=== PATIENT | male | born 1935 | race Caucasian/White ===

== ENCOUNTER 2016-09-02 10:58 | Inpatient (IN) | payer MEDICARE ==
[~2016-09-02] VITALS: Ht 167.6 cm; Wt 59.2 kg
--- NOTE | 2016-09-03 13:32 | HP ---
ADMIT: 09/02/2016 RM/LOC: 512 [facility] MR#: [id number] [address] [address] [place] [address] History and Physical SEX: M AGE: 81 : 1935 DATE OF SERVICE: CHIEF COMPLAINT: Hip pain. HISTORY OF PRESENT ILLNESS: Leyla Milner an 81-year-old male residing at [facility]. He is accompanied by his daughter. Unknown, how he had a fall; however, it is unknown that he did have a mechanical fall. No chest pain or shortness of breath. No nausea or vomiting. He has pain in his right hip and that is it. He has been treated with Bactrim previously for UTI. He is evaluated by Dr. Cain in the ER as well as Orthopedics is contacted and was noted to have a hip fracture. Head CT is completed and no acute findings. Chemistries are stable. His creatinine is 1.7, unknown what his baseline is. Left to look back at that. No white count, hemoglobin is 13.2, INR is not prolonged. X-ray of his hip shows right hip fracture, and no acute changes. He does have some hyperinflation. The patient is a very poor historian, just states he does have right hip pain. He would like to leave. He does not like to stay in the hospital but his daughter does talk to him and he is now ultimately agrees. On this stay, he does have a broken hip. PAST MEDICAL HISTORY: Includes: 1. Macular edema. 2. Hearing loss. 3. Vascular dementia. 4. Hypertension. 5. Chronic atrial fibrillation. 6. Coronary artery disease. 7. Hyperlipidemia. 8. Urge incontinence. MEDICATIONS: Include: 1. Fosamax. 2. Norvasc. 3. Eliquis. 4. Tenormin. 5. Lipitor. 6. Voltaren gel. 7. Aricept. 8. Iron. 9. Antivert. 10.Namenda. 11.Ditropan. 12.Tramadol. 13.Vitamin E. SOCIAL HISTORY: He previously had a UTI and the date onto the Bactrim is the . ADMIT: 09/02/2016 RM/LOC: 512 [facility] MR#: [id number] [address] [address] [place] [address] History and Physical SEX: M AGE: 81 : 1935 ALLERGIES: NO KNOWN MEDICAL ALLERGIES. FAMILY HISTORY: Mother with ovarian cancer. Father with heart disease. Sister with hyperlipidemia, brother with bone cancer, sister with arthritis. He does not drink, smoke, or do drugs. He did smoke in the past. REVIEW OF SYSTEMS: Attempted to be obtained; however, he is a very poor historian. He only complains of right hip pain. PHYSICAL EXAMINATION: VITAL SIGNS: 170/76, pulse 71, respiratory rate is 18, temperature is 96.5, he is 98% on room air. GENERAL: He is alert. He is orientated to person. He is agitated by blood pressure cuff which resolves when we taken off. He is very fidgety, want to leave. NECK: Supple. HEENT: Extraocular muscles intact. Pupils equally round and responsive to light. HEART: Actually sounds regular. LUNGS: Distant. ABDOMEN: Soft, nontender. EXTREMITIES: No clubbing or cyanosis. He actually moves his right hip. It does cause him some pain. Reminded that he broke his hip and he does stop moving his leg. Frequent redirecting is required. LABORATORY DATA: EKG with no acute ST segments. CT head no acute findings. Sodium is 140, potassium 4.1, chloride is 105, bicarb is 28, BUN is 27, creatinine is 1.7. Recent creatinine in clinic 3 days ago was 1.28. White blood cells are 9.4, hemoglobin is 13.2, platelets a 192. INR is 1.12. X-ray right hip fracture, chest x-ray; hyperinflation no pneumonia. ASSESSMENT AND PLAN: 1. Right hip fracture. 2. Acute renal failure. 3. Previous urinary tract infection. 4. Atrial fibrillation. 5. Hypertension. 6. Hyperlipidemia. 7. Dementia. The patient is in acute renal failure. I put him on some normal saline. We will follow up some laboratories in the morning. We will hold his ADMIT: 09/02/2016 RM/LOC: 512 [facility] MR#: [id number] [address] [address] [place] [address] History and Physical SEX: M AGE: 81 : 1935 nephrotoxins at this time. We will go ahead and hold his anticoagulation to ready him for the OR. We will also maintain him on some antibiotics for his previously known UTI. This is by nature of a nonelective surgical intervention and therefore, buying a nature high risk. He is a high risk for postsurgical complications. He is a high surgical risk for an intermediate risk procedure; however, he does have a very high mortality rate if no intervention is taken. We will go ahead and add this to Dr. Thompson's list and he will assume his care in the morning. Plan is to proceed to the OR with Dr. Charles in the morning for ORIF of his right hip fracture. I discussed this plan with the patient, expressed understanding, was in agreement, had no further questions. Kevin Fletcher MD/ tanmay JOB #: [id number] CC: Maldonado Thompson, Attending Physician [facility] Physician, Family Physician
--- NOTE | 2016-09-04 08:12 | OR ---
ADMIT: 09/02/2016 RM/LOC: 512 [facility] MR#: [id number] [address] [address] [place] [address] Operative/Delivery Room Report SEX: M AGE: 81 : 1935 SURGERY DATE: 09/03/2016 SURGEON: Alfreda Charles MD PREOPERATIVE DIAGNOSIS: Right intertrochanteric hip fracture. POSTOPERATIVE DIAGNOSIS: Right intertrochanteric hip fracture. PROCEDURE: Trochanteric femoral nailing, right hip. ANESTHESIA: General. ESTIMATED BLOOD LOSS: 25 mL. COMPLICATIONS: None. SPECIMEN: None. FREELANCE ART DIRECTOR: HORACIO Diallo. IMPLANT: Synthes trochanteric femoral nail 12 mm x 130 degrees x 170 mm with a 105 mm spiral blade and a 38 mm distal locking screw. DESCRIPTION OF PROCEDURE: This patient was brought to the operating room. After a satisfactory level of anesthesia was achieved, the patient was placed on the fracture table in the supine position. All bony prominences were well padded. His right lower extremity was placed in traction, and a close reduction performed using C-arm image intensifier to guide our reduction. The hip was then prepped and draped in the usual sterile fashion through an incision just above the right greater trochanter. Dissection was carried through the subcutaneous tissue using electrocautery. The tensor fascia was split and a guide pin was placed in the tip of the trochanter and placed down into the femur across the fracture site. The trochanteric reamer was then ADMIT: 09/02/2016 RM/LOC: 512 [facility] MR#: [id number] [address] [address] [place] [address] Operative/Delivery Room Report SEX: M AGE: 81 : 1935 used and a 12 mm x 130 degrees x 170 mm trochanteric femoral nail was then seated. The alignment guide was then used for the spiral blade through a 2 cm incision laterally and more distally. A guidewire was placed up to the femoral head and neck. This was measured, the cortex then reamed, and then a step drill used to thin the femoral head and neck. A 105 mm spiral blade was seated, locked proximally, then distally through the same incision. I placed an alignment guide. I then placed a single 38 mm locking screw to complete the fixation of the fracture. AP and lateral C-arm images were obtained for permanent films. Both wounds were irrigated. The deep fascia with closed with #1 Vicryl, the subcutaneous tissue with 2-0 Vicryl, and the skin with jaquelin. Sterile dressings were applied to both wounds and the patient was then transferred from the operative suite in stable condition. Alfreda Charles MD/ tanmay JOB #: [id number] CC: Maldonado Thompson, Attending Physician [facility] Physician, Family Physician
--- NOTE | 2016-09-06 07:13 | DS ---
ADMIT: 09/02/2016 RM/LOC: 512 [facility] MR#: [id number] [address] [address] [place] [address] Discharge Summary SEX: M AGE: 81 : 1935 ADMISSION DATE: 09/02/2016 DISCHARGE DATE: 09/05/2016 CONSULTATIONS: Orthopedic Surgery. FINAL DIAGNOSES: 1. Acute hip fracture. 2. Severe advanced dementia. 3. Atrial fibrillation. 4. Hypertension. 5. Acute blood loss anemia. REASON FOR ADMISSION: The patient is an 81-year-old gentleman, who [facility]. Became unsteady, fell, had a hip fracture. Admitted for further definitive care. HOSPITAL COURSE: The patient was admitted. Orthopedic Surgery had discussion with his family regarding overall goals of care and surgery. Elected for surgery. He proceeded for surgery and overall did quite well. Pain was well controlled postoperatively. No major issues other than some acute blood loss anemia. He was restarted on his anticoagulation regarding his atrial fibrillation. Eating a general diet reasonably well. At time of discharge, arrangements were made for a snf facility. DISCHARGE INSTRUCTIONS: He will go to a snf facility. DISCHARGE MEDICATIONS: Please see discharge MAR. He will see me back to clinic in 10-14 days. We will hold his Eliquis for a couple of days at discharge and get a repeat H and H on Saturday. Maldonado Thompson MD/ abhishek JOB #: [id number] CC: Maldonado Thompson MD, Attending Physician [facility] Physician, Family Physician
[2016-09-06] MEDS ORDERED: ARICEPT DPS5 MG PO (13:42)
[2016-09-06] MEDS ORDERED: DITROPAN-DPS5 MG PO (13:42)
[2016-09-06] MEDS ORDERED: ELIQUIS2.5 MG PO (13:42)
[2016-09-06] MEDS ORDERED: NORVASC2.5 MG PO (13:43)
[2016-09-06] MEDS ORDERED: TENORMIN-DPS25 MG PO (13:43)
[2016-09-06] MEDS ORDERED: SENOKOT S1 TAB PO (13:43)
[2016-09-06] MEDS ORDERED: FEOSOL-DPS325 MG PO (13:43)
[2016-09-06] MEDS ORDERED: LIPITOR DPS10 MG PO (13:43)
[2016-09-06] MEDS ORDERED: NAMENDA5 MG PO (13:43)
[2016-09-06] MEDS ORDERED: TYLENOL EXTRA500 M1 PO (13:44)
[2016-09-06] MEDS ORDERED: VITAMIN E400 UNIT PO (13:45)
[2016-09-06] MEDS ORDERED: ULTRAM DPS50 MG PO (13:46)
[2016-09-06] MEDS ORDERED: ATIVAN-DPS0.5 MG PO (13:46)
[2016-09-06] MEDS ORDERED: MIRALAX PACKET17 GM PO (13:47)
--- NOTE | 2016-09-09 21:25 | ER ---
ADMIT: 09/02/2016 RM/LOC: ER [facility] MR#: [id number] [address] [address] [place] [address] Emergency Room Report SEX: M AGE: 81 : 1935 DATE: 09/02/2016 CHIEF COMPLAINT: Fell, would not move right leg, would not bear weight. HISTORY OF PRESENT ILLNESS: The patient is an 81-year-old male, comes in from a senior living where he stays because he has significant dementia. Staff states they had seen the patient about 5 minutes prior and then when they went back into the room he was lying on the ground. They were unable to get the patient to get up and stand on his right leg, so they called EMS, and they transferred him in. The patient was not initially coming in as a trauma, but en-route EMS determined he was on a blood thinner and when they arrived in our Emergency Department, they made aware that he was called as a partial trauma at that time. The patient is significantly demented and unable to provide me any reliable history. Family does arrive shortly after and verifies he is at his baseline mental status. REVIEW OF SYSTEMS: Unobtainable due to his advanced dementia. PHYSICAL EXAMINATION: VITAL SIGNS: Blood pressure is 170/76, respirations 18, temp 96.5, heart rate 71, sats 98% on room air. GENERAL: Airway is patent. The patient is breathing spontaneously. Circulation is good in all 4 extremities. SKIN: Warm and dry. HEENT: Secondary survey of head shows no obvious signs of trauma. Pupils are equal, round, and reactive to light. Extraocular muscles are intact. He will track with his eyes. There is no facial asymmetry. NECK: Supple. HEART: Regular rate and rhythm. LUNGS: Clear to auscultation. ABDOMEN: Soft, does not appear to be tender. Pelvis is stable. EXTREMITIES: Upper extremities show he does have a skin tear on his right elbow which is 1 x 2 cm, and he has some surrounding ecchymosis, but there is no deformity and he will range of motion his elbow without difficulty. He has good pulses distally. The patient is making purposeful movements with his bilateral upper extremities. Lower extremity shows that on his right, he has pain with rotation or attempts to flex his right hip. It is possibly very slightly shortened when compared to the left, but not externally rotated. He has a good pulse in the right lower extremity, and he is moving his toes, and has no pedal edema in either lower extremity. LABORATORY AND X-RAY DATA: Chest x-ray shows some fibrotic changes, and may be due to chronic fibrotic change, we cannot exclude inflammatory change as we do not have a prior study. X-ray of the pelvis and right hip reveals a right intertrochanteric hip fracture. CT head shows nothing acute. INR was therapeutic CBC and BMP is unremarkable. EKG shows paced rhythm. ADMIT: 09/02/2016 RM/LOC: [facility] MR#: [id number] [address] [place] [phone] [place] [address] Emergency Room Report SEX: M AGE: 81 : 1935 EMERGENCY DEPARTMENT COURSE: The patient was called as a partial trauma as he is on Eliquis and had a fall and unsure if he hit his head. Workup shows he does have an intertrochanteric hip fracture. I did talk with the family and [facility], but after further discussion, they elected to stay in our facility. I contacted Dr. Charles, who is on for Orthopedics, who will be in consultation as the patient is admitted to our facility, and Dr. Fletcher will be admitting the patient as a primary service as he sees Dr. Thompson at his senior living. DIAGNOSIS: 1. Intertrochanteric hip fracture. 2. Dementia. Arsen Cain MD/ tanmay JOB #: [id number] CC: Arsen Cain MD, Attending Physician [facility] Physician, Family Physician
--- NOTE | 2016-09-17 11:53 | CO ---
ADMIT: 09/02/2016 RM/LOC: 512 [facility] MR#: [id number] [address] [address] [place] [address] Consultation SEX: M AGE: 81 : 1935 Corrected: 09/14/2016 1319 jovon ATTENDING PHYSICIAN: Maldonado Thompson CONSULTING PHYSICIAN: Alfreda Charles MD CHIEF COMPLAINT: Right hip pain. HISTORY OF PRESENT ILLNESS: This is an 81-year-old, residing at [facility]. He had a mechanical fall injuring the right hip. He has a history of dementia and most of his history is from the chart or his daughter who accompanies him. PAST MEDICAL HISTORY: He has a history of vascular dementia, hypertension, atrial fibrillation, coronary artery disease, hyperlipidemia. MEDICATIONS: Include: 1. Fosamax. 2. Norvasc. 3. Eliquis. 4. Tenormin. 5. Lipitor. 6. Voltaren gel. 7. Aricept. 8. Antivert. 9. Namenda. 10.Ditropan. 11.Tramadol. 12.Vitamin E. ALLERGIES: NO ALLERGIES TO MEDICATIONS. SOCIAL HISTORY: The patient is at [place], but is followed medically at [facility] here in [place]. He did smoke in the past. FAMILY HISTORY: Positive for cancer and heart disease. PHYSICAL EXAMINATION: EXTREMITIES: This patient's right lower extremity is shortened and externally rotated. He has good capillary refill in the ADMIT: 09/02/2016 RM/LOC: 512 [facility] MR#: [id number] [address] [address] [place] [address] Consultation SEX: M AGE: 81 : 1935 extremity, good sensation on the plantar and dorsal surface of the foot. IMAGING DATA: Radiographs do show a comminuted intertrochanteric hip fracture. IMPRESSION: Comminuted right intertrochanteric hip fracture. RECOMMENDATIONS: Right trochanteric femoral nailing. The risks, benefits, alternatives, as well as potential complications were discussed with the patient's daughter, they understand, and wished to proceed with surgery. Alfreda Charles MD/ tanmay JOB #: [id number] CC: Maldonado Thompson, Attending Physician [facility] Physician, Family Physician Corrected: 09/14/2016 1319 jovon
== END 2016-09-05 14:20 | DRG 481 ==
LOC: ER 10:58 → 5MS 13:28 → EDBD 09-05 14:20
PROVIDERS: ADMIT Internal Medicine
PROC: 0QS604Z Reposition Right Upper Femur with Internal Fixation Device, Open Approach (ICD-10-PCS; principal; 2016-09-03)
PROC: 3E0234Z Introduction of Serum, Toxoid and Vaccine into Muscle, Percutaneous Approach (ICD-10-PCS; 2016-09-05)
DX: S72.141A Displaced intertrochanteric fracture of right femur, initial encounter for closed fracture (principal); N17.9 Acute kidney failure, unspecified; N39.0 Urinary tract infection, site not specified; F01.50 Vascular dementia, unspecified severity, without behavioral disturbance, psychotic disturbance, mood disturbance, and anxiety; D62 Acute posthemorrhagic anemia; W18.30XA Fall on same level, unspecified, initial encounter; Y92.129 Unspecified place in nursing home as the place of occurrence of the external cause; Z23 Encounter for immunization; H91.90 Unspecified hearing loss, unspecified ear; I10 Essential (primary) hypertension; I48.2 Chronic atrial fibrillation; I25.10 Atherosclerotic heart disease of native coronary artery without angina pectoris; E78.5 Hyperlipidemia, unspecified; N39.41 Urge incontinence; Z79.01 Long term (current) use of anticoagulants; Z87.891 Personal history of nicotine dependence; Z95.1 Presence of aortocoronary bypass graft; Z95.0 Presence of cardiac pacemaker

== ENCOUNTER 2016-10-02 21:18 | Emergency (ER) | payer MEDICARE ==
[~2016-10-02 21:18] MED LIST: ARICEPT DPS5 MG PO; ATIVAN-DPS0.5 MG PO; DITROPAN-DPS5 MG PO; ELIQUIS2.5 MG PO; FEOSOL-DPS325 MG PO; LIPITOR DPS10 MG PO; MIRALAX PACKET17 GM PO; NAMENDA5 MG PO; NORVASC2.5 MG PO; SENOKOT S1 TAB PO; TENORMIN-DPS25 MG PO; TYLENOL EXTRA500 M1 PO; ULTRAM DPS50 MG PO; VITAMIN E400 UNIT PO
--- NOTE | 2016-10-03 19:09 | ER ---
ADMIT: 10/02/2016 RM/LOC: ER [facility] MR#: [id number] [address] [address] [place] [address] Emergency Room Report SEX: M AGE: 81 : 1935 DATE: 10/02/2016 CHIEF COMPLAINT: Fall. HISTORY OF PRESENT ILLNESS: This is an 81-year-old male, who resides in the skilled care unit at [facility], who fell prior to arrival. The patient was in his wheelchair when he went to get up and fell, struck his head and sustained a laceration to his right elbow. The patient is on Eliquis for atrial fibrillation, status post pacemaker. He was transported by the [facility]. Complained of head and neck pain at the scene. Mild amount of pain. However, exam is very limited by his history of underlying vascular dementia. Upon exam, complains of cut to his right arm. Denies any other pain. PAST MEDICAL HISTORY: Has atrial fibrillation, hypertension, dementia. MEDICATIONS: He is on Eliquis. ALLERGIES: NO KNOWN DRUG ALLERGIES. COURSE IN THE EMERGENCY ROOM: GENERAL: The patient was seen and examined. He is alert, however, very disoriented. He does not answer questions appropriately. VITAL SIGNS: Stable. HEENT: No evidence of head trauma. He moves his head from side to side. Denies any neck pain. Pupils equal and reactive. RESPIRATORY: Airway is intact. Chest is nontender. No respiratory distress. Breath sounds normal. HEART: Normal heart sounds. No murmurs, gallops, or rubs. ABDOMEN: Nontender. NEUROLOGIC: No facial asymmetry. He does have underlying dementia. He is nonweightbearing secondary to his hip fracture repair a month ago. SKIN: Warm and dry. He does have a 9 cm laceration in the right arm that extends into the muscular fascia. No vertebral tenderness. EXTREMITIES: Atraumatic. Pelvis is stable. Hips are nontender. No pedal edema. Did get a CT of his head and C-spine, negative for any acute fractures or hemorrhage. X-ray of the right hip negative for any acute fracture or dislocations. Prosthesis has good alignment. LABORATORY: Shows white count 11.9, hemoglobin 11.1, hematocrit 33.7, platelets 250. Sodium 137, potassium 3.9, CO2 of 28, BUN 17, creatinine 1.2. Did get a blood type on him, O positive. PROCEDURE NOTE: This is a 9 cm flap-like avulsion laceration sustained to the right elbow. It is clean neurovascularly intact. Anesthetized with 5 mL of lidocaine with epinephrine, prepared with Betadine, Ultradex, and thoroughly irrigated with saline. Wound was explored to the base. No obvious foreign body was identified. After anesthesia was achieved, the wound edges were ADMIT: 10/02/2016 RM/LOC: [facility] MR#: [id number] [address] [place], [place] [id number] [place] [address] Emergency Room Report SEX: M AGE: 81 : 1935 revised. Multiple flaps were realigned with 8 vertical mattress sutures and one simple interrupted suture using 4-0 Prolene. Wound edges were well everted. He was given a dose of Keflex 500 mg p.o. prior to discharge. IMPRESSION: 1. Right elbow laceration. 2. Abrasion to right eyebrow. 3. Fall. 4. Dementia. 5. Blood thinners secondary to atrial fibrillation. 6. Status post bipolar hip repair. DISPOSITION: He is to return to [place]. Resume therapies as ordered. Weightbearing as previously ordered. Resume medications. Start Keflex 500 mg p.o. b.i.d. x7 days. Follow up with Donna in 7-10 days to remove sutures. Monitor the wound for signs and symptoms of infection. Clean daily with warm soapy water. Change the bandage daily. Neuro check every 4 hours for 24 hours. Return with any worsening signs or symptoms. Questions sought and answered with the son at bedside. Discharged back to [place] in stable condition. HORACIO Mayen / Ryan Ferrara MD / tanmay JOB #: [id number] CC: Ryan Ferrara MD, Attending Physician Maldonado Thompson MD, Family Physician
== END 2016-10-03 00:30 | disposition home or self-care (01) ==
LOC: EDBD 21:18 → ER 21:18
PROC: 0HQDXZZ Repair Right Lower Arm Skin, External Approach (ICD-10-PCS; principal; 2016-10-02)
DX: S51.011A Laceration without foreign body of right elbow, initial encounter (principal); S00.211A Abrasion of right eyelid and periocular area, initial encounter; F03.90 Unspecified dementia, unspecified severity, without behavioral disturbance, psychotic disturbance, mood disturbance, and anxiety; I48.91 Unspecified atrial fibrillation; I10 Essential (primary) hypertension; Z79.01 Long term (current) use of anticoagulants; Z79.899 Other long term (current) drug therapy; Z98.890 Other specified postprocedural states; W18.30XA Fall on same level, unspecified, initial encounter; Y92.129 Unspecified place in nursing home as the place of occurrence of the external cause

== ENCOUNTER 2016-10-20 09:55 | Emergency (ER) | payer MEDICARE ==
--- NOTE | 2016-10-23 13:13 | ER ---
ADMIT: 10/20/2016 RM/LOC: ER [facility] MR#: [id number] [address] [place] [phone] [place] [address] Emergency Room Report SEX: M AGE: 81 : 1935 DATE: 10/20/2016 Mr. Casper is an 81-year-old male, who lives at [facility]. He fell and he is on Eliquis, he fell about 30 minutes prior to coming to the emergency room. He has an extensive history of Alzheimer's. He has also fractured his femur and is receiving some therapy for the fracture, he has atrial fibrillation, he has a pacer, high cholesterol, acute kidney issues, vascular dementia. The reason he was a trauma code is because he fell and is on blood thinner and he hit his head. He was brought via ambulance and his son is here at this time. PAST MEDICAL HISTORY: Had been mentioned already. He does have vascular dementia. MEDICATIONS: Include: 1. Ativan. 2. Ultram. 3. Senokot. 4. Tylenol as needed. 5. Eliquis. 6. Cephalexin. 7. Tenormin. 8. Zyprexa. 9. Lipitor. 10.MiraLax. 11.Namenda. 12.Norvasc. 13.Feosol. 14.Aricept. 15.Ditropan. ALLERGIES: NO KNOWN DRUG ALLERGIES. HIS LAST TETANUS IS UNKNOWN. PHYSICAL EXAMINATION: VITAL SIGNS: Blood pressure at time of arrival to the ER is 123/48, O2 sats 94%, and pulse is 66. ADMIT: 10/20/2016 RM/LOC: ER [facility] MR#: [id number] [address] [place] [phone] [place] [address] Emergency Room Report SEX: M AGE: 81 : 1935 He is alert and has some neck tenderness, but he is not in a C-collar. He does have an abrasion to the right eyebrow about 2 cm in length and a star superficial laceration on the bridge of the nose without any indication of bone fracture. His nose is clear for blood in the nares. Eyes are PERRLA. EXTREMITIES: Right forearm has a previous skin tear that has been repaired and is protected. The left elbow has a hematoma but he is able to move his elbow without any difficulty. Good range of motion. CT head and neck, both negative nothing acute. His EKG is paced at rate of 70. Tdap to be given to him and he will be discharged to the long-term. Instructions to follow for care of laceration and Dermabond on area. Follow up with primary provider. HORACIO Miller / Kevin Garcia MD / tanmay JOB #: [id number] CC: Kevin Garcia MD, Attending Physician [facility] Physician, Family Physician
--- NOTE | 2016-10-27 17:48 | ER ---
ADMIT: 10/20/2016 RM/LOC: ER [facility] MR#: [id number] [address] [address] [place] [address] Emergency Room Report SEX: M AGE: 81 : 1935 DATE: 10/20/2016 FINAL IMPRESSION: Fall, anticoagulated, head contusion with laceration to forehead and bridge of nose. HORACIO Miller / Kevin Garcia MD / modl JOB #: [id number] CC: Kevin Garcia MD, Attending Physician [facility] Physician, Family Physician
== END 2016-10-20 12:50 | disposition home or self-care (01) ==
LOC: ER 09:55 → EDBD 09:55 → ER 09:55
PROC: 0HQ1XZZ Repair Face Skin, External Approach (ICD-10-PCS; principal; 2016-10-20)
DX: S00.93XA Contusion of unspecified part of head, initial encounter (principal); S01.21XA Laceration without foreign body of nose, initial encounter; S01.111A Laceration without foreign body of right eyelid and periocular area, initial encounter; I48.91 Unspecified atrial fibrillation; G30.9 Alzheimer's disease, unspecified; F01.50 Vascular dementia, unspecified severity, without behavioral disturbance, psychotic disturbance, mood disturbance, and anxiety; E78.00 Pure hypercholesterolemia, unspecified; Z79.01 Long term (current) use of anticoagulants; Z79.899 Other long term (current) drug therapy; Z23 Encounter for immunization; W20.8XXA Other cause of strike by thrown, projected or falling object, initial encounter